=== PATIENT | female | born 1990 | race Caucasian/White ===

== ENCOUNTER 2021-12-15 19:52 | Emergency (ER) | payer OTHER ==
[2021-12-15] MEDS ORDERED: Ketorolac 30 MG/ML SDV IM ONE (20:14)
[2021-12-15] MEDS ORDERED: Promethazine 25 MG/ML SDV IM ONE (20:15)
== END 2021-12-15 20:43 | disposition home or self-care (01) ==
LOC: LL.ED 19:52
DX: G43.911 Migraine, unspecified, intractable, with status migrainosus (principal)
CPT/HCPCS: 96372; 99283; J1885; J2550